=== PATIENT | female | born 1995 | race Caucasian/White ===

== ENCOUNTER 2018-09-17 19:42 | Emergency (ER) | payer OTHER, SELFPAY ==
[2018-09-17 19:44] VITALS: BP 121/82; PULSE 80; RESP 17; TEMP 36.7; O2SAT 98; BMI 21.4
[2018-09-17] MEDS: Clindamycin HCl 150 MG Capsule 300 MG PO (21:16)
--- NOTE | 2018-09-17 21:19 | ED.VISSUMM ---
- ER Visit Summary Date of Service: 09/17/18 Chief Complaint: Gluteal abscess History of Present Illness: The patient is a 22 F who presents with a left gluteal abscess. Patient states she has a history of MRSA and has developed an abscess in the left lower gluteal area over the past 6 days. Patient states pain is worse with sitting. Patient states the pain is also worse with walking. Patient denies any fevers or chills. Patient denies any discharge or drainage. Physical Examination: Vital signs are stable. Patient is afebrile. Patient is in no acute distress. Skin is warm and dry. There is a erythematous tender indurated area over the left lower gluteal area. There is some mild fluctuance. There is no active discharge or drainage noted. There is a small pustule noted. Neurovascular exam is intact. Emergency Department Course and Treatment: The abscess area was cleaned and the skin was anesthetized with 1% plain lidocaine locally. A #11 blade scalpel was used to make a cruciate incision. A moderate amount of purulent drainage was expressed. The abscess was irrigated with saline. Bacitracin dressing was applied. Patient tolerated the procedure well. Patient was given a prescription for clindamycin. Patient was instructed to follow-up with her primary care physician in 5 to 7 days. Patient understood and was agreeable with the plan. All questions were answered. Disposition: Discharge Home Impression: Left gluteal abscess This note was generated with [employer] dictation software. It may contain incorrect words, spelling, and punctuation that were not noted in review of the chart prior to signing ED Disposition - Plan for ED Patient: Disposition: Home or Assisted Living Diagnosis: Abscess Instructions: ED Abscess IandD Prescriptions: Clindamycin HCl [Cleocin] 300 mg PO Q6H #40 cap Referrals: Farshad Rueda MD [Primary Care Provider] - 5-7 Days
[2018-09-17] MEDS: BACITRACIN 15 GM Tube 1 APPLIC TOPICAL (22:34)
[2018-09-17 22:35] VITALS: BP 105/78; PULSE 70; RESP 17; O2SAT 100
== END 2018-09-17 22:36 | disposition home or self-care (01) ==
PROVIDERS: Emergency Provider Emergency Medicine; Family Provider Pediatrics; PCP Pediatrics
DX: L02.31 Cutaneous abscess of buttock (principal); F41.9 Anxiety disorder, unspecified; F32.9 Major depressive disorder, single episode, unspecified; Z86.14 Personal history of Methicillin resistant Staphylococcus aureus infection; Z79.899 Other long term (current) drug therapy
CPT/HCPCS: 10060; 99283